=== PATIENT | female | born 1970 | race Two or more races ===

== ENCOUNTER → 2021-09-04 11:17 | Outpatient (BNVA) | payer MEDICAID, SELFPAY | PROVIDERS: Visit Provider Physician Assistant Surgical | DX: Z13.89 Encounter for screening for other disorder (principal) ==

== ENCOUNTER → 2021-09-19 11:08 | Outpatient (BNVA) | payer MEDICAID, SELFPAY | PROVIDERS: Visit Provider Physician Assistant Surgical | DX: E66.01 Morbid (severe) obesity due to excess calories (principal); Z68.41 Body mass index [BMI] 40.0-44.9, adult | CPT/HCPCS: 99202 ==

== ENCOUNTER 2021-10-03 09:11 | Outpatient (REF) | payer MEDICAID, OTHER, SELFPAY ==
--- NOTE | ~2021-10-03 | XR_ITS ---
EXAMINATION: XR CHEST CLINICAL INFORMATION: Morbid obesity due to excess calories. COMPARISON: None TECHNIQUE: 2 views of the chest were obtained. FINDINGS: The lungs are clear. No pleural effusions. Incidental azygos fissure. The heart and mediastinal structures are unremarkable. XR/XR chest 2V IMPRESSION: No acute cardiopulmonary process.
[2021-10-03 09:34] LABS: MANUAL DIFF FLAG NO
--- NOTE | 2021-10-03 09:34 | ECG_ITS ---
Test Reason : OBESITY Blood Pressure : / mmHG Vent. Rate : 080 BPM Atrial Rate : 080 BPM P-R Int : 130 ms QRS Dur : 076 ms QT Int : 430 ms P-R-T Axes : -07 032 013 degrees QTc Int : 495 ms Normal sinus rhythm Prolonged QT Abnormal ECG No previous ECGs available Referred By: Kelvin Saravia Electronically Signed By:ESTUARDO GALINDO MD
[2021-10-03 09:57] LABS: Basophils Absolute Auto 0.1 X10*3/uL (0.0-0.2); Basophils Percent Auto 0.9 % (0-2); Eosinophils Absolute Auto 0.2 X10*3/uL (0.0-0.4); Eosinophils Percent Auto 3.6 % (0-4); Hematocrit 45.5 % (37.0-47.0); Hemoglobin 15.2 g/dl (12.0-16.0); Lymphocytes Absolute Auto 3.3 X10*3/uL (1.2-4.9); Lymphocytes Percent Auto 57.2 % (20-40); Mean Corpuscular HGB Conc 33.4 g/dl (31.0-35.0); Mean Corpuscular Hemoglobin 28.7 pg (27.0-33.0); Mean Corpuscular Volume 85.8 fL (80.0-98.0); Mean Platelet Volume 9.2 fL (9.4-12.3); Monocytes Absolute Auto 0.4 X10*3/uL (0.1-1.2); Neutrophils Absolute Auto 1.9 x10*3/uL (2.0-8.3); Neutrophils Percent Auto 32.3 % (45-73); Platelet Count 266 X10*3/uL (160-400); Red Cell Distribution Width 13.5 % (11.0-16.0); White Blood Count 5.8 X10*3/uL (4.8-10.8)
[2021-10-03 10:08] LABS: Estimated Average Glucose 148 mg/dL; Hemoglobin A1c % 6.8 %
[2021-10-03 10:25] LABS: Alanine Aminotransferase 111 U/L (0-31); Albumin Level 4.1 g/dL (3.5-5.0); Alkaline Phosphatase 84 U/L (39-117); Anion Gap 13 (12-20); Aspartate Amino Transferase 67 U/L (5-31); Bilirubin Total 0.6 mg/dL (0.0-1.0); Blood Urea Nitrogen 12 mg/dL (9-16); C Reactive Protein 1.57 mg/dL (< or = 0.50); Calcium 9.4 mg/dL (8.4-10.2); Carbon Dioxide 24 mmol/L (22-29); Chloride 108 mmol/L (96-108); Cholesterol 243 mg/dL; Estimated Glomerular Filt Rate > 60; Glucose Random 138 mg/dL (60-115); HDL Cholesterol 44 mg/dL; Iron 57 mcg/dL (30-160); LDL Cholesterol Calculated 169 mg/dl; Percent Iron Saturation 17 % (15-50); Potassium 3.8 mmol/L (3.3-5.1); Sodium 141 mmol/L (135-145); Total Iron Binding Capacity 340 mcg/dL (228-428); Total Protein 6.7 g/dL (6.5-8.0); Triglycerides 153 mg/dL; Unsaturated Iron Binding 283 ug/dL
[2021-10-03 11:12] LABS: Folate 15.4 ng/mL (> or = 4.0); Vitamin B12 289 pg/mL (200-900)
[2021-10-03 11:14] LABS: Ferritin 115 ng/mL (10-250); TSH reflex Free T4 3.62 uIU/mL (0.32-4.0); Vitamin D 25-OH Total 19.5 ng/mL (>30)
[2021-10-03 11:42] LABS: Insulin 31 uU/mL (2-29)
[2021-10-04 15:41] LABS: Calcium (PTHI) 9.6 mg/dL (8.6-10.2); PTHI 57 pg/mL (16-77)
[2021-10-06 04:17] LABS: Zinc 71 mcg/dL (60-130)
[2021-10-07 17:52] LABS: Vitamin B1 7 nmol/L (8-30)
[2021-10-08 17:36] LABS: Vitamin A 25 mcg/dL (38-98)
== END 2021-10-03 09:12 | disposition home or self-care (01) ==
LOC: HO.LAB 09:11
PROVIDERS: PCP Nurse Practitioner Family; Visit Provider Physician Assistant Surgical
DX: Z01.818 Encounter for other preprocedural examination (principal); E66.01 Morbid (severe) obesity due to excess calories; F32.2 Major depressive disorder, single episode, severe without psychotic features
CPT/HCPCS: 36415; 71046; 80053; 80061; 82306; 82607; 82728; 82746; 83013; 83036; 83525; 83540; 83970; 84425; 84443; 84590; 84630; 85025; 86140; 90791; 93005; 99211

== ENCOUNTER 2021-10-03 15:09 | Outpatient (REF) | payer MEDICAID, SELFPAY ==
[2021-10-04 17:27] LABS: H Pylori Breath Test Negative (Negative)
== END 2021-10-03 15:10 | disposition home or self-care (01) ==
LOC: HO.LNP 15:09
PROVIDERS: Visit Provider Physician Assistant Surgical
DX: E66.01 Morbid (severe) obesity due to excess calories (principal)
CPT/HCPCS: 83013

== ENCOUNTER → 2021-10-18 07:33 | Outpatient (REF) | payer MEDICAID, SELFPAY ==
--- NOTE | 2021-10-18 07:39 | CA_ITS ---
Acquisition Time: 2021-10-18 08:03:56 Total Exercise Time: 00:05:34 Test Indications: ABN EKG PREOP Medications: SEE CHART Protocol: ANDREW Max HR: 137 BPM 79% of Pred: 172 BPM Max BP: 180/088 mmHG Max Work Load: 7.0 METS Exercise stess test with exercise 5 min 34 sec of Andrew protocol, achieving 79% MPHR, 6.8 METs, with mild to moderate shortness of breath, fatigue and left hand discomfort with grasping bar and request to stop, no chest discomfort, without arrythmia, with normotensive response to exercise, with nondiagnostic EKG for ischemia due to suboptimal heart rate however no ischemia seen at acheived workload. If further evaluation for ischemia is warranted then recommend a pharmacological nuclear stress test. Test reviewed with Dr Odom. Referred By: Alexi Cedillo Overread By: LADARIUS JORDAN
== END ==
LOC: HO.CARD 07:33
PROVIDERS: Visit Provider Surgery
DX: Z01.818 Encounter for other preprocedural examination (principal); R94.31 Abnormal electrocardiogram [ECG] [EKG]; E66.01 Morbid (severe) obesity due to excess calories
CPT/HCPCS: 93017; 97802

== ENCOUNTER → 2021-10-24 07:46 | Outpatient (REF) | payer MEDICAID, SELFPAY ==
--- NOTE | 2021-10-24 07:50 | CA_ITS ---
Transthoracic Echocardiogram Patient (Last, First, Middle): Judy Lobato, Gender: Female Date of : 1970 Age: 50 Procedure Date: 10/24/2021 Procedure Type: Transthoracic Echocardiogram Location: OP Height: 165.1 cm Weight: 102.51 kg BSA: 2.08 m2 Heart Rate: 73 bpm BP: 120 / 84 mmHg Inclusion Manager: VERITO Referring MD: Alexi Cedillo MD Fretted Instruments Inspector: Radames Crowell MD Symptoms: R94.31 - Abnormal electrocardiogram [ECG] [EKG] Study Quality: Adequate/Contrast ECG Rhythm: Sinus Conclusions: - 1. Normal LV systolic and diastolic function 2. Normal cardiac valvular Doppler 3. No gross pericardial effusion Findings Procedure Information Contrast agent, definity, is being given per protocol without apparent complications. Left Ventricle Normal left ventricular size, thickness, and systolic function. The visually estimated ejection fraction is between 60-65%. Spectral Doppler is indicative of a normal filling pattern. Right Ventricle Normal right ventricular cavity size and systolic function. Atria The left atrium is normal in size. Interatrial shunt cannot be excluded. The right atrium was not well visualized. Aortic Valve The aortic valve structure and function is likely normal. There is no aortic valve stenosis. There is no aortic valve regurgitation. Mitral Valve Likely normal mitral valve structure and function. There is no mitral valve regurgitation. There is no mitral valve stenosis. Pulmonic Valve The pulmonic valve was not well visualized. Tricuspid Valve The tricuspid valve was not well visualized. Tricuspid regurgitation envelope is inadequate for calculation of right ventricular systolic pressure. Normal right atrial pressure. Great Vessels The aorta was not well visualized. The pulmonary artery was not well visualized. Venous The inferior vena cava is normal in size and collapses greater than 50% with inspiration. Pericardium/Pleural There is no evidence of pericardial effusion. Prior Study Comparison No prior study available for comparison. Measurements 2D Linear Measurements IVSd: 0.76 0.6-0.9/0.6-1.0 cm LVIDd: 5.00 3.9-5.3/4.2-5.9 cm LVIDd Index: 2.40 2.4-3.2/2.2-3.1 cm/m2 LVIDs: 3.28 2.0-3.6 cm LVPWd: 0.73 0.7-1.1 cm Ao Root: 0.00 2.1-3.5 cm LA Diam: 3.40 2.7-3.8/3.0-4.0 cm LAIDs Index: 1.63 1.5-2.3 cm/m2 LV Mass: 154.03 67-162/88-224 g LV Mass Index: 74.05 43-95/49-115 g/m2 LVOT Diam: 2.10 3.0+(-)1.3 cm 2D Systolic Function EF 4C: 55.40 >55% EF 2C: 56.60 >55% Mitral Valve MV Pk E: 0.83 MV PK A: 0.76 E/A: 1.10 E'Lateral: 9.14 E'Medial: 6.85 E/E' Med: 12.10 E/E' Lat: 9.00 Aortic Valve AoV Pk Richard: 1.34 AoV Mn Richard: 0.87 AoV VTI: 0.27 AoV Pk Grad: 7.00 Aov Mn Grad: 4.00 JASVIR Cont.VTI: 2.26 LVOT LVOT Pk Richard: 0.87 LVOT Mn Richard: 0.58 LVOT VTI: 0.18 LVOT Pk Grad: 3.00 LVOT Mn Grad: 2.00 LVOT Diam: 2.10 LVOT Area: 3.46 Diastolic Function MV Pk E: 0.83 MV Pk A: 0.76 E/A: 1.10 E'Medial: 6.85 E/E' Med: 12.10 E' Laterial: 9.14 E/E' Lat: 9.00 Right Ventricle TAPSE (mm): 19.70 TVS' Richard: 11.10 Tricuspid Valve RA Press: 3.00 Great Vessels Aorta Ao Root-2D: 0.00 2.0-3.7 cm Sinus of Valsalva: 2.60 2.0-3.[address] Ridge: 2.10 1.7-3.4 cm Ao Asc: 3.00 2.1-3.4 cm Updated in Other Vendor System with Status of Final Radames Crowell MD electronically signed on 10/24/2021 3:19:45 PM with status of Final
== END ==
LOC: HO.CARD 07:46
PROVIDERS: PCP Nurse Practitioner Family; Visit Provider Surgery
DX: Z01.818 Encounter for other preprocedural examination (principal); R06.02 Shortness of breath; R94.31 Abnormal electrocardiogram [ECG] [EKG]
CPT/HCPCS: 93306; Q9957

== ENCOUNTER → 2021-11-05 09:56 | Outpatient (BNVA) | payer MEDICAID, SELFPAY | PROVIDERS: PCP Nurse Practitioner Family; Visit Provider Physician Assistant Surgical | DX: E66.9 Obesity, unspecified (principal); Z68.39 Body mass index [BMI] 39.0-39.9, adult | CPT/HCPCS: 99212 ==

== ENCOUNTER → 2021-11-30 14:41 | Outpatient (BNVA) | payer MEDICAID, SELFPAY | PROVIDERS: PCP Nurse Practitioner Family; Visit Provider Physician Assistant Surgical | DX: E66.9 Obesity, unspecified (principal); Z68.39 Body mass index [BMI] 39.0-39.9, adult | CPT/HCPCS: 99212 ==

== ENCOUNTER → 2021-12-04 10:00 | Outpatient (BNVA) | payer OTHER, MEDICAID, SELFPAY | PROVIDERS: PCP Nurse Practitioner Family; Referring Provider Physician Assistant Surgical; Visit Provider Counselor Mental Health | DX: F50.2 Bulimia nervosa (principal); F32.2 Major depressive disorder, single episode, severe without psychotic features; E66.9 Obesity, unspecified | CPT/HCPCS: 90834 ==

== ENCOUNTER → 2021-12-12 09:48 | Outpatient (BNVA) | payer OTHER, MEDICAID, SELFPAY | PROVIDERS: PCP Nurse Practitioner Family; Visit Provider Counselor Mental Health | DX: F32.2 Major depressive disorder, single episode, severe without psychotic features (principal); F50.2 Bulimia nervosa; E66.9 Obesity, unspecified | CPT/HCPCS: 90834 ==

== ENCOUNTER → 2021-12-24 12:30 | Outpatient (BNVA) | payer OTHER, MEDICAID, SELFPAY | PROVIDERS: PCP Nurse Practitioner Family; Visit Provider Counselor Mental Health | DX: F32.2 Major depressive disorder, single episode, severe without psychotic features (principal); E66.9 Obesity, unspecified | CPT/HCPCS: 90832 ==

== ENCOUNTER → 2022-01-09 10:00 | Outpatient (BNVA) | payer OTHER, MEDICAID, SELFPAY | PROVIDERS: PCP Nurse Practitioner Family; Visit Provider Counselor Mental Health | DX: F32.2 Major depressive disorder, single episode, severe without psychotic features (principal); E66.9 Obesity, unspecified | CPT/HCPCS: 90832 ==

== ENCOUNTER → 2022-02-06 10:52 | Outpatient (BNVA) | payer OTHER, MEDICAID, SELFPAY | PROVIDERS: PCP Nurse Practitioner Family; Visit Provider Counselor Mental Health | DX: F32.2 Major depressive disorder, single episode, severe without psychotic features (principal); E66.9 Obesity, unspecified | CPT/HCPCS: 90834 ==